=== PATIENT | female | born 2000 | race Two or more races ===

== ENCOUNTER 2022-08-22 12:18 | Emergency (ER) | payer OTHER ==
[~2022-08-22] VITALS: Ht 152.4 cm; Wt 56.7 kg
[2022-08-22 12:32] VITALS: BP 126/72
[2022-08-22] MEDS ORDERED: CETI1TAB9 PO (13:27)
[2022-08-22] MEDS ORDERED: IBUP-1953 PO (13:27)
--- NOTE | 2022-08-22 13:45 | NUR ---
RAPID COVID, RSV AND FLU SWAB DONE AND SENT TO LAB
== END 2022-08-22 13:59 | disposition home or self-care (01) ==
LOC: ER 12:31
DX: J10.1 Influenza due to other identified influenza virus with other respiratory manifestations (principal); Z20.822 Contact with and (suspected) exposure to COVID-19
CPT/HCPCS: 99283; 87426; 87804; 87420; C9803

== ENCOUNTER 2025-02-19 11:11 | Emergency (ER) | payer OTHER ==
[~2025-02-19] VITALS: Ht 162.6 cm; Wt 56.7 kg
[~2025-02-19 11:11] MED LIST: CETI1TAB9 PO; IBUP-1953 PO
[2025-02-19 11:14] VITALS: BP 135/81; TEMP 98
[2025-02-19] MEDS ORDERED: POLY10DR3 EACHEYE (11:24)
[2025-02-19 11:40] VITALS: O2SAT 98
== END 2025-02-19 11:35 | disposition home or self-care (01) ==
LOC: ER 11:14
DX: H10.33 Unspecified acute conjunctivitis, bilateral (principal); Z79.899 Other long term (current) drug therapy